=== PATIENT | female | born 1975 | race Caucasian/White ===

== ENCOUNTER 2023-01-07 16:08 | Emergency (ER) | payer SELFPAY ==
[~2023-01-07] VITALS: Ht 160 cm; Wt 55.0 kg
[2023-01-07] MEDS ORDERED: ACETAMINOPHEN 325MG TABLET PO ONE (16:45)
[2023-01-07] MEDS ORDERED: IBUP-2029 MT (18:17)
[2023-01-07 18:40] VITALS: BP 119/80
== END 2023-01-07 18:41 | disposition home or self-care (01) ==
LOC: ER 16:08
DX: S50.11XA Contusion of right forearm, initial encounter (principal); V49.59XA Passenger injured in collision with other motor vehicles in traffic accident, initial encounter; Y93.89 Activity, other specified; Y92.89 Other specified places as the place of occurrence of the external cause; Y99.8 Other external cause status
CPT/HCPCS: 73030; 73090; 81025; 99284